=== PATIENT | female | born 1995 | race Caucasian/White ===

== ENCOUNTER 2016-10-23 10:37 | Emergency (ER) | payer OTHER ==
[~2016-10-23] VITALS: Ht 160 cm; Wt 63.9 kg
[~2016-10-23 10:37] MED LIST: ASPI325T39 PO
[2016-10-23 10:40] VITALS: TEMP 37; Ht 160 cm; Wt 63.9 kg
--- NOTE | 2016-10-23 11:13 | EMERGENCY ROOM VISIT NOTE ---
ED Visit Note First contact with patient: 11:01 CHIEF COMPLAINT: Shoulder pain HISTORY OF PRESENT ILLNESS: This 20-year-old female patient presents to the emergency department ambulatory complaining of pain in the right shoulder which began when she woke up this morning. The patient reports that she has had a throbbing pain in the right shoulder which radiates down the right arm with movement. The pain started when she woke up this morning and has been gradually progressing since then. She denies any specific injury to the shoulder, but does state that she was doing some heavy lifting at work earlier this week. There is no limitation of motion of the arm. The pain is moderate, constant and increases with motion of the hand and arm. The patient states the pain is throbbing and 4/10. The patient has taken no medications for relief of the pain. No previous significant previous shoulder disease or injury. No numbness or tingling. No neck or back pain. No chest pain or shortness of breath. No abdominal pain or nausea/vomiting. No cough. The patient denies any history of shoulder problems. 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 She has seen an orthopedic providers for this in the past. REVIEW OF SYSTEMS: A 6 system review of systems was performed with positives and pertinent negatives in the HPI. ALLERGIES: Bee stings MEDICATIONS: No chronic medications PMH: No significant past medical history. SOCIAL HISTORY: The patient lives locally with her family. Nonsmoker. PHYSICAL EXAM: Vital Signs: Reviewed nurse's notes, vital signs stable. GENERAL : This is a 20-year-old female, in no acute distress, but appears to be in pain , well-developed, well-nourished. MUSCULOSKELETAL: There is no deformity in the contour of the right shoulder and there are no duc deformities noted. There is no sulcus sign. There is tenderness over the trapezius muscle and posterior shoulder. The patient's range of motion is full. Supraspinatus strength 5/5. There is no clavicle tenderness. No tenderness of the humerus, elbow, wrist, or hand. Open Hearth Helper strength 5/5. Radial pulse 2+. NECK: No tenderness to palpation over the cervical spine. HEART: Regular rate and rhythm without murmurs gallops or rubs. LUNGS: Clear to auscultation bilaterally without wheezes, rales or rhonchi. No accessory muscle use. No retractions. NEURO: The patient is alert and oriented to person, place, and time. Normal sensation to light and sharp touch. Capillary refill less than 2 seconds. RADIOGRAPHIC FINDINGS: RIGHT SHOULDER MIN 2 VIEWS ROUTINE CLINICAL HISTORY: Right shoulder pain. COMPARISON: None FINDINGS: Alignment of the right shoulder is anatomic. No fracture or lesion is present. Joint spaces are preserved. IMPRESSION: Unremarkable right shoulder radiographs. EMERGENCY DEPARTMENT COURSE: I examined the patient. An X-ray of the right shoulder was reviewed by myself and radiology and shows no acute fractures. Conservative measures were discussed with the patient. She will follow-up with her established orthopedist. She verbalized understanding and was discharged home in good condition. DIAGNOSIS: Shoulder pain Problem List Medical Problems: (1) No Known Active Medical Problems Status: Chronic Current/Historical Medications No Active Prescriptions or Reported Meds Allergies Coded Allergies: BEE STING (Unverified Allergy, Intermediate, SWELLING, 10/23/16) Vital Signs Date Time Temp Pulse Resp B/P Pulse Ox O2 Delivery O2 Flow Rate FiO2 10/23/16 12:45 60 16 113/63 98 10/23/16 10:40 37.0 83 18 117/75 99 Room Air Departure Information Impression Primary Impression: Right shoulder pain Dispostion Home / Self-Care Condition GOOD Prescriptions No Active Prescriptions or Reported Meds Referrals No Doctor, Assigned (PCP) Patient Instructions My [facility] Additional Instructions You have been treated in the Emergency Department for Shoulder Pain. Naproxen sodium: Take one tablet twice daily for at least 1 week or until pain subsides. This is an [id number] anti-inflammatory medication. If this is a recent injury (<24 hrs), ice can be applied to the area of pain for the first 3 days to help decrease pain and inflammation. Follow-up with your established orthopedic doctor as needed for further evaluation. Return to the Emergency Department if your current symptoms worsen despite treatment course outlined above, or if you develop any of the following symptoms : intractable pain despite aforementioned treatment course or new onset of numbness or tingling of the arm.
--- NOTE | 2016-10-23 12:28 | DIAGNOSTIC IMAGING REPORT ---
RIGHT SHOULDER MIN 2 VIEWS ROUTINE CLINICAL HISTORY: Right shoulder pain. COMPARISON: None FINDINGS: Alignment of the right shoulder is anatomic. No fracture or lesion is present. Joint spaces are preserved. IMPRESSION: Unremarkable right shoulder radiographs. Electronically signed by: Bossman Aparicio M.D. 10/23/2016 12:26 PM Dictated Date/Time: 10/23/2016 12:26 PM
[2016-10-23 12:45] VITALS: BP 113/63; PULSE 60; O2SAT 98
== END 2016-10-23 12:54 | disposition home or self-care (01) ==
LOC: C.EDB 10:39 → C.EDD 12:54
DX: M25.511 Pain in right shoulder (principal)